=== PATIENT | male | born 1990 | race African-American/Black ===

== ENCOUNTER 2019-07-23 18:25 | Emergency (ER) | payer OTHER ==
[2019-07-23] MEDS ORDERED: ACETAMINOPHEN 500 MG TABLET (FP) PO ONE (18:38)
[2019-07-23] MEDS ORDERED: METHOCARBAMOL 500 MG TABLET PO ONE (18:38)
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
[2019-07-23 18:50] VITALS: BP 128/76; PULSE 63; TEMP 97.9; BMI 30.4
[2019-07-23] MEDS ORDERED: METHOCARBAMOL 500 MG TABLET ONE (18:53)
[2019-07-23] MEDS ORDERED: ACETAMINOPHEN 500 MG TABLET (FP) ONE (18:53)
== END 2019-07-23 19:03 | disposition home or self-care (01) ==
LOC: FER 18:25
DX: Z04.1 Encounter for examination and observation following transport accident (principal); S13.4XXA Sprain of ligaments of cervical spine, initial encounter
CPT/HCPCS: 99283-25